=== PATIENT | male | born 1965 | race Caucasian/White ===

== ENCOUNTER 2017-10-17 08:26 | Emergency (ER) | payer MEDICAID ==
[~2017-10-17] VITALS: Ht 177.8 cm; Wt 75.0 kg
[~2017-10-17 08:26] MED LIST: ALBU6.7H INH; BENZ1TAB7 PO; BUDE10.2 INH; CHOL50004 PO; FLUO20CA22 PO; FOLI1TAB16 PO; GABA-532 PO; HALO10TA13 PO; HALO5TAB PO; LORA-269 PO; MULT1TAB74 PO; PANT-47 PO; PRAZ1CAP2 PO; PRED10TA23 PO; QUET-1 PO; SERT50TA10 PO; VITA-104 PO
[2017-10-17] MEDS ORDERED: FLO0.4C PO (08:55)
[2017-10-17] MEDS ORDERED: phenazopyridine 100mg tablet PO ONE (08:55)
[2017-10-17] MEDS ORDERED: CefTRIAXone 250MG IM Kit w/LIDOcaine IM ONE (08:55)
[2017-10-17] MEDS ORDERED: BACDS PO (08:55)
[2017-10-17] MEDS ORDERED: azithromycin 250mg tablet PO ONE (08:55)
[2017-10-17] MEDS ORDERED: ondansetron 4mg rapidly disintigrating tab PO ONE (08:55)
[2017-10-17 09:12] VITALS: BP 126/83
[2017-10-17 09:18] LABS: CLARITY,URINE CLEAR (Clear); COLOR,URINE YELLOW (Yellow); GLUCOSE, URINE NEGATIVE (Neg); KETONES,URINE TRACE mg/dl (Neg); LEUKOCYTE ESTERASE ,URINE NEGATIVE (Neg); NITRITES, URINE NEGATIVE (Neg); OCCULT BLOOD,URINE NEGATIVE (Neg); PROTEIN,URINE NEGATIVE (Neg); UROBILINOGEN,URINE 0.2 E.U/dL (0.2-1.0)
[2017-10-17 09:29] LABS: UA COLLECTION TYPE CLN CATCH MIDSTREAM
[2017-10-17] MEDS ORDERED: LIDOcaine 2% 10ml TOPICAL JELLY (Urojet) MM ONE (09:35)
== END 2017-10-17 10:26 | disposition home or self-care (01) ==
LOC: ER 08:26
DX: R33.9 Retention of urine, unspecified (principal); R30.0 Dysuria; R39.15 Urgency of urination; E78.00 Pure hypercholesterolemia, unspecified; I10 Essential (primary) hypertension; J44.9 Chronic obstructive pulmonary disease, unspecified; G89.29 Other chronic pain; F15.90 Other stimulant use, unspecified, uncomplicated; F12.90 Cannabis use, unspecified, uncomplicated; Z59.0 Homelessness; Z79.899 Other long term (current) drug therapy
CPT/HCPCS: 51702; 81003; 96372; 99285; A4315; J0696

== ENCOUNTER 2017-10-24 05:49 | Emergency (ER) | payer MEDICAID ==
[~2017-10-24] VITALS: Ht 177.8 cm; Wt 75.0 kg
[~2017-10-24 05:49] MED LIST changes: +BACDS PO; +FLO0.4C PO
[2017-10-24 05:58] VITALS: BP 127/84
== END 2017-10-24 06:55 | disposition home or self-care (01) ==
LOC: ER 05:50
DX: Z46.6 Encounter for fitting and adjustment of urinary device (principal); I10 Essential (primary) hypertension; E78.00 Pure hypercholesterolemia, unspecified; J44.9 Chronic obstructive pulmonary disease, unspecified; G89.29 Other chronic pain; F12.90 Cannabis use, unspecified, uncomplicated; F15.90 Other stimulant use, unspecified, uncomplicated; Z90.89 Acquired absence of other organs; Z79.899 Other long term (current) drug therapy; Z59.0 Homelessness
CPT/HCPCS: 99281

== ENCOUNTER 2017-12-29 11:43 | Emergency (ER) | payer MEDICAID ==
[~2017-12-29] VITALS: Ht 177.8 cm; Wt 68.0 kg
[~2017-12-29 11:43] MED LIST changes: -BACDS PO; -FLO0.4C PO
[2017-12-29 12:54] LABS: CLARITY,URINE SLIGHTLY CLOUDY (Clear); GLUCOSE, URINE NEGATIVE (Neg); KETONES,URINE 15 mg/dl (Neg); LEUKOCYTE ESTERASE ,URINE NEGATIVE (Neg); NITRITES, URINE POSITIVE (Neg); OCCULT BLOOD,URINE MODERATE (Neg); PROTEIN,URINE 30 mg/dl (Neg)
[2017-12-29 12:55] LABS: COLOR,URINE DARK YELLOW (Yellow); UA COLLECTION TYPE FOLEY CATH
[2017-12-29 13:01] LABS: BACTERIA,URINE 4+ /HPF (Neg); WBC,URINE 20-30 /HPF (0-4)
[2017-12-29 13:02] LABS: SPERM MODERATE /HPF (NEGATIVE); SQUAMOUS EPITHELIAL CELL,UR FEW /LPF (FEW)
[2017-12-29] MEDS ORDERED: ciprofloxacin 250mg tablet PO ONE (13:15)
[2017-12-29] MEDS ORDERED: CIPR-230 PO (13:18)
[2017-12-29] MEDS ORDERED: FLO0.4C PO (13:35)
[2017-12-29 14:02] VITALS: BP 139/102
== END 2017-12-29 14:03 | disposition home or self-care (01) ==
LOC: ER 11:44
DX: N39.0 Urinary tract infection, site not specified (principal); E78.00 Pure hypercholesterolemia, unspecified; I10 Essential (primary) hypertension; J44.9 Chronic obstructive pulmonary disease, unspecified; G89.29 Other chronic pain; F17.200 Nicotine dependence, unspecified, uncomplicated; F12.90 Cannabis use, unspecified, uncomplicated; F15.90 Other stimulant use, unspecified, uncomplicated; Z90.89 Acquired absence of other organs; Z59.0 Homelessness; Z79.899 Other long term (current) drug therapy
CPT/HCPCS: 51702; 81001; 87077; 87088; 87186; 99284; A4315

== ENCOUNTER 2018-01-05 07:52 | Emergency (ER) | payer MEDICAID ==
[~2018-01-05] VITALS: Ht 177.8 cm; Wt 71.8 kg
[~2018-01-05 07:52] MED LIST changes: +CIPR-230 PO; +FLO0.4C PO
[2018-01-05 09:27] VITALS: BP 119/79
== END 2018-01-05 09:28 | disposition home or self-care (01) ==
LOC: ER 07:53
DX: Z46.6 Encounter for fitting and adjustment of urinary device (principal); R33.9 Retention of urine, unspecified; E78.00 Pure hypercholesterolemia, unspecified; I10 Essential (primary) hypertension; J44.9 Chronic obstructive pulmonary disease, unspecified; G89.29 Other chronic pain; F17.200 Nicotine dependence, unspecified, uncomplicated; F12.90 Cannabis use, unspecified, uncomplicated; F15.90 Other stimulant use, unspecified, uncomplicated; Z79.899 Other long term (current) drug therapy; Z59.0 Homelessness
CPT/HCPCS: 99281

== ENCOUNTER 2018-04-10 08:51 | Emergency (ER) | payer MEDICAID ==
[~2018-04-10] VITALS: Ht 177.8 cm; Wt 72.7 kg
[~2018-04-10 08:51] MED LIST changes: -CIPR-230 PO; -FLO0.4C PO
[2018-04-10] MEDS ORDERED: normal saline 1000ML IV soln IVB ONE (09:20)
[2018-04-10] MEDS ORDERED: acetaminophen 325mg tablet PO ONE (09:25)
[2018-04-10 09:46] LABS: BASOPHILS % (AUTO) 0.1 % (0-1); EOSINOPHILS % (AUTO) 0 % (0-6); HEMATOCRIT 42.3 % (42.0-52.0); HEMOGLOBIN 14.2 g/dl (14.0-17.9); LYMPHOCYTES # (AUTO) 0.4 X10'3 (1.1-4.8); LYMPHOCYTES % (AUTO) 5.3 % (21-51); MEAN CORPUSCULAR HEMOGLOBIN 30.6 PG (27.0-31.0); MEAN CORPUSCULAR HGB CONC 33.6 % (33.0-36.5); MEAN PLATELET VOLUME 8.6 FL (7.4-10.4); MONOCYTES # (AUTO) 0.5 X10'3 (0-0.9); MONOCYTES % (AUTO) 6.4 % (2-12); NEUTROPHILS # (AUTO) 7.4 X10'3 (1.8-7.7); NEUTROPHILS % (AUTO) 88.2 % (42-75); PLATELET COUNT 186 X10'3 (140-440); RED BLOOD COUNT 4.65 X10'6 (4.70-6.10); RED CELL DISTRIBUTION WIDTH 14.2 % (11.5-14.5); WHITE BLOOD COUNT 8.4 X10'3 (4.5-11.0)
[2018-04-10 10:04] LABS: ALANINE AMINOTRANSFERASE 20 U/L (12-78); ALBUMIN 3.6 G/DL (3.4-5.0); ALBUMIN/GLOBULIN RATIO 0.9 (1.1-1.5); ALKALINE PHOSPHATASE 60 IU/L (46-116); ANION GAP 12 (8-16); ASPARTATE AMINO TRANSFERASE 23 U/L (10-37); BILIRUBIN,TOTAL 0.4 MG/DL (0.1-1.0); BLOOD UREA NITROGEN 16 MG/DL (7-18); BUN/CREATININE RATIO 12.9 (5.4-32.0); CALCIUM 8.6 MG/DL (8.5-10.1); CHLORIDE 96 MMOL/L (99-107); CREATININE 1.24 MG/DL (0.60-1.10); GLUCOSE 100 MG/DL (70-104); POTASSIUM 3.3 MMOL/L (3.5-5.1); SODIUM 132 MMOL/L (135-145); TOTAL CARBON DIOXIDE 23.8 MMOL/L (24-32); TOTAL PROTEIN 7.5 G/DL (6.4-8.2); eGFR 61 ML/MIN
[2018-04-10 10:09] LABS: PARTIAL THROMBOPLASTIN TIME 35 SECONDS (22-32); PROTHROMBIN TIME 9.8 SECONDS (9.0-12.0)
[2018-04-10] MEDS ORDERED: AZIT-72 PO (10:42)
[2018-04-10 10:43] LABS: CLARITY,URINE CLEAR (Clear); COLOR,URINE AMBER (Yellow); GLUCOSE, URINE NEGATIVE (Neg); KETONES,URINE TRACE mg/dl (Neg); LEUKOCYTE ESTERASE ,URINE NEGATIVE (Neg); NITRITES, URINE NEGATIVE (Neg); OCCULT BLOOD,URINE NEGATIVE (Neg); PROTEIN,URINE 30 mg/dl (Neg); UA COLLECTION TYPE NON-SPECIFIED
[2018-04-10 10:46] LABS: BANDS% (MANUAL) 7 % (0-10); LYMPHOCYTES % (MANUAL) 7 % (21-51); MONOCYTES % (MANUAL) 3 % (2-12); NEUTROPHILS % (MANUAL) 83 % (42-75); PLATELET ESTIMATE NORMAL; TOTAL CELLS COUNTED 100
[2018-04-10 10:51] LABS: RBC,URINE NONE SEEN /HPF (0-2)
[2018-04-10 10:52] LABS: BACTERIA,URINE FEW /HPF (Neg); MUCUS STRANDS MODERATE /LPF (Neg); SQUAMOUS EPITHELIAL CELL,UR NONE SEEN /LPF (FEW)
[2018-04-10] MEDS ORDERED: BENZ-16 PO (10:58)
[2018-04-10 11:02] VITALS: BP 116/61
== END 2018-04-10 11:04 | disposition home or self-care (01) ==
LOC: ER 08:52
DX: J11.1 Influenza due to unidentified influenza virus with other respiratory manifestations (principal); R05 Cough; R51 Headache; R11.2 Nausea with vomiting, unspecified; E78.00 Pure hypercholesterolemia, unspecified; I10 Essential (primary) hypertension; G89.29 Other chronic pain; F41.9 Anxiety disorder, unspecified; F17.200 Nicotine dependence, unspecified, uncomplicated; J44.9 Chronic obstructive pulmonary disease, unspecified; F12.10 Cannabis abuse, uncomplicated; F15.10 Other stimulant abuse, uncomplicated; Z59.0 Homelessness; Z88.1 Allergy status to other antibiotic agents; Z88.8 Allergy status to other drugs, medicaments and biological substances; Z90.89 Acquired absence of other organs
CPT/HCPCS: 36415; 71045; 80053; 81001; 83605; 84145; 85025; 85610; 85730; 87040; 87088; 96360; 99284; J7030

== ENCOUNTER 2019-02-16 13:47 | Emergency (ER) | payer MEDICAID ==
[~2019-02-16] VITALS: Ht 177.8 cm; Wt 68.2 kg
[~2019-02-16 13:47] MED LIST changes: -ALBU6.7H INH; +ALBU6.7H9 INH
--- NOTE | 2019-02-16 14:19 | NUR ---
Provider, Dr. Wallace is with the patient at this time.
[2019-02-16] MEDS ORDERED: proparacaine 0.5% ophthalmic drops 15ml EACHEYE ONE (14:25)
[2019-02-16 15:00] VITALS: BP 118/62
== END 2019-02-16 15:29 | disposition home or self-care (01) ==
LOC: ER 13:48
DX: H16.002 Unspecified corneal ulcer, left eye (principal); E78.00 Pure hypercholesterolemia, unspecified; I10 Essential (primary) hypertension; J44.9 Chronic obstructive pulmonary disease, unspecified; G89.29 Other chronic pain; F12.90 Cannabis use, unspecified, uncomplicated; F15.90 Other stimulant use, unspecified, uncomplicated; Z59.0 Homelessness; Z90.89 Acquired absence of other organs; Z79.899 Other long term (current) drug therapy
CPT/HCPCS: 99283

== ENCOUNTER 2019-04-20 10:34 | Emergency (ER) | payer MEDICAID ==
[~2019-04-20] VITALS: Ht 177.8 cm; Wt 71.3 kg
[2019-04-20 10:53] VITALS: BP 129/77
[2019-04-20] MEDS ORDERED: HYDROcodone/acetaminophen 10/325mg tab PO ONE (11:00)
== END 2019-04-20 12:10 | disposition home or self-care (01) ==
LOC: ER 10:34
DX: S43.101A Unspecified dislocation of right acromioclavicular joint, initial encounter (principal); E78.00 Pure hypercholesterolemia, unspecified; I10 Essential (primary) hypertension; J44.9 Chronic obstructive pulmonary disease, unspecified; G89.29 Other chronic pain; F41.9 Anxiety disorder, unspecified; F12.90 Cannabis use, unspecified, uncomplicated; F15.90 Other stimulant use, unspecified, uncomplicated; Z90.89 Acquired absence of other organs; Z59.0 Homelessness; Z79.899 Other long term (current) drug therapy; W01.0XXA Fall on same level from slipping, tripping and stumbling without subsequent striking against object, initial encounter; Y93.89 Activity, other specified; Y92.89 Other specified places as the place of occurrence of the external cause; Y99.8 Other external cause status
CPT/HCPCS: 73030; 99284

== ENCOUNTER 2020-06-05 10:39 | Inpatient (IN) | payer MEDICAID ==
[~2020-06-05] VITALS: Ht 177.8 cm; Wt 76.6 kg
[~2020-06-05 10:39] MED LIST changes: +FLUO-167 PO; -FLUO20CA22 PO; +MULT-620 PO; -MULT1TAB74 PO
[2020-06-05 12:01] LABS: BASOPHILS % (AUTO) 0.8 % (0-1); EOSINOPHILS # (AUTO) 0.1 X10'3 (0-0.9); EOSINOPHILS % (AUTO) 2.4 % (0-6); HEMATOCRIT 26.7 % (42.0-52.0); LYMPHOCYTES # (AUTO) 1.4 X10'3 (1.1-4.8); LYMPHOCYTES % (AUTO) 26.9 % (21-51); MEAN CORPUSCULAR HEMOGLOBIN 28.9 PG (27.0-31.0); MEAN CORPUSCULAR HGB CONC 33.7 g/dL (33.0-36.5); MEAN CORPUSCULAR VOLUME 85.7 FL (78-98); MEAN PLATELET VOLUME 6.7 FL (7.4-10.4); MONOCYTES # (AUTO) 0.4 X10'3 (0-0.9); MONOCYTES % (AUTO) 7.3 % (2-12); NEUTROPHILS # (AUTO) 3.3 X10'3 (1.8-7.7); NEUTROPHILS % (AUTO) 62.6 % (42-75); PLATELET COUNT 234 X10'3 (140-440); RED BLOOD COUNT 3.11 X10'6 (4.70-6.10); WHITE BLOOD COUNT 5.2 X10'3 (4.5-11.0)
[2020-06-05 12:03] LABS: CLARITY,URINE CLEAR (Clear); COLOR,URINE STRAW (Yellow); GLUCOSE, URINE NEGATIVE (Neg); KETONES,URINE NEGATIVE (Neg); LEUKOCYTE ESTERASE ,URINE NEGATIVE (Neg); NITRITES, URINE NEGATIVE (Neg); OCCULT BLOOD,URINE TRACE-INTACT (Neg); PROTEIN,URINE NEGATIVE (Neg); UROBILINOGEN,URINE 0.2 E.U/dL (0.2-1.0)
[2020-06-05 12:10] LABS: UA COLLECTION TYPE CLN CATCH MIDSTREAM
[2020-06-05 12:15] LABS: ALANINE AMINOTRANSFERASE 39 U/L (12-78); ALBUMIN 3.7 G/DL (3.4-5.0); ALBUMIN/GLOBULIN RATIO 0.9 (1.1-1.5); ALKALINE PHOSPHATASE 66 IU/L (46-116); ANION GAP 13 (8-16); ASPARTATE AMINO TRANSFERASE 25 U/L (10-37); BILIRUBIN,TOTAL 0.3 MG/DL (0.1-1.0); BLOOD UREA NITROGEN 92 MG/DL (7-18); BUN/CREATININE RATIO 15.3 (5.4-32.0); CALCIUM 8.5 MG/DL (8.5-10.1); CHLORIDE 108 MMOL/L (99-107); CREATININE 6.02 MG/DL (0.60-1.10); GLUCOSE 93 MG/DL (70-104); POTASSIUM 4.8 MMOL/L (3.5-5.1); SODIUM 140 MMOL/L (135-145); TOTAL CARBON DIOXIDE 18.9 MMOL/L (24-32); TOTAL PROTEIN 7.7 G/DL (6.4-8.2); eGFR 10 ML/MIN
[2020-06-05 12:23] LABS: BACTERIA,URINE NONE SEEN /HPF (Neg); MUCUS STRANDS NONE SEEN /LPF (Neg); RBC,URINE 0-2 /HPF (0-2); RENAL CELLS, URINE FEW /HPF; SQUAMOUS EPITHELIAL CELL,UR NONE SEEN /LPF (FEW); WBC,URINE 0-4 /HPF (0-4)
[2020-06-05] MEDS ORDERED: normal saline 1000ml 1,000 ML IV ONE ×2 (12:55)
[2020-06-05] MEDS ORDERED: LIDOcaine 2% 10ml TOPICAL JELLY (Urojet) MM ONE (13:00)
[2020-06-05] MEDS ORDERED: HYDROcodone/acetaminophen 5mg/325mg tablet PO PRN (13:15)
[2020-06-05] MEDS ORDERED: morphine 2 MG/ML inj. syringe IV PRN ×2 (13:15)
[2020-06-05] MEDS ORDERED: mag hydrox/Alum hydrox/simeth 30ml oral suspension PO PRN (13:15)
[2020-06-05] MEDS ORDERED: acetaminophen 325mg tablet PO PRN ×2 (13:15)
[2020-06-05] MEDS ORDERED: magnesium hydroxide 30ml (MOM) UD suspension PO PRN (13:15)
[2020-06-05] MEDS ORDERED: ondansetron/PF 4mg/2ml inj IV PRN (13:15)
[2020-06-05] MEDS ORDERED: IBUP-1985 PO (13:18)
[2020-06-05] MEDS ORDERED: OMEP-50 PO (13:18)
[2020-06-05] MEDS ORDERED: GABA-534 PO (13:18)
[2020-06-05] MEDS ORDERED: FLO0.4C PO (13:18)
--- NOTE | 2020-06-05 13:19 | NUR ---
nitro gtt increased to 10 mg/hr per PA instructions, pt tolerating gtt and BIPAP well
[2020-06-05 14:00] LABS: MAGNESIUM 2.1 MG/DL (1.5-2.4); PHOSPHORUS 6.8 MG/DL (2.3-4.5)
[2020-06-05] MEDS: normal saline 1000ml 1,000 ML IV SCH ×2 (14:46→23:15)
[2020-06-05] MEDS: HYDROcodone/acetaminophen 10/325mg tab PO PRN (16:31)
--- NOTE | 2020-06-05 16:54 | NUR ---
Patient in room PCU 3018A. I have received report from YULY ANDERSON IN ER and had the opportunity to ask questions and assume patient care.
[2020-06-05 18:00] VITALS: BP 166/95
--- NOTE | 2020-06-05 18:38 | NUR ---
Problems reprioritized. Patient report given, questions answered & plan of care reviewed with YULY GUTIERREZ.
[2020-06-05] MEDS: gabapentin 400mg capsule PO SCH (20:07)
[2020-06-05] MEDS: heparin, porcine 5000 units/ml vial SQ SCH (20:07)
[2020-06-05 22:00] VITALS: BP 156/84
[2020-06-06] MEDS: normal saline 1000ml 1,000 ML IV SCH ×2 (00:41→19:15)
[2020-06-06 02:00] VITALS: BP 141/87
[2020-06-06 06:00] VITALS: BP 134/81
[2020-06-06] MEDS: HYDROcodone/acetaminophen 10/325mg tab PO PRN ×2 (06:17→15:43)
--- NOTE | 2020-06-06 06:33 | NUR ---
Patient in room PCU 3018. I have received report from Josi EMERY and had the opportunity to ask questions and assume patient care.
[2020-06-06 07:14] LABS: BASOPHILS # (AUTO) 0.1 X10'3 (0-0.2); BASOPHILS % (AUTO) 0.8 % (0-1); EOSINOPHILS # (AUTO) 0.2 X10'3 (0-0.9); EOSINOPHILS % (AUTO) 3.2 % (0-6); HEMATOCRIT 31.7 % (42.0-52.0); HEMOGLOBIN 10.6 g/dl (14.0-17.9); LYMPHOCYTES # (AUTO) 1.7 X10'3 (1.1-4.8); LYMPHOCYTES % (AUTO) 28.7 % (21-51); MEAN CORPUSCULAR HEMOGLOBIN 28.8 PG (27.0-31.0); MEAN CORPUSCULAR HGB CONC 33.5 g/dL (33.0-36.5); MEAN CORPUSCULAR VOLUME 85.9 FL (78-98); MEAN PLATELET VOLUME 7.2 FL (7.4-10.4); MONOCYTES # (AUTO) 0.4 X10'3 (0-0.9); MONOCYTES % (AUTO) 6.7 % (2-12); NEUTROPHILS # (AUTO) 3.7 X10'3 (1.8-7.7); NEUTROPHILS % (AUTO) 60.6 % (42-75); PLATELET COUNT 287 X10'3 (140-440); RED CELL DISTRIBUTION WIDTH 13.9 % (11.5-14.5); WHITE BLOOD COUNT 6.1 X10'3 (4.5-11.0)
[2020-06-06 07:20] LABS: ALBUMIN 3.9 G/DL (3.4-5.0); ANION GAP 12 (8-16); BLOOD UREA NITROGEN 78 MG/DL (7-18); CALCIUM 8.5 MG/DL (8.5-10.1); CHLORIDE 107 MMOL/L (99-107); CREATININE 4.89 MG/DL (0.60-1.10); GLUCOSE 90 MG/DL (70-104); SODIUM 141 MMOL/L (135-145); TOTAL CARBON DIOXIDE 21.9 MMOL/L (24-32); eGFR 12 ML/MIN
[2020-06-06] MEDS: pantoprazole 40mg Tablet.DR PO SCH (08:19)
[2020-06-06] MEDS: gabapentin 400mg capsule PO SCH ×2 (08:19→13:14)
[2020-06-06] MEDS: tamsulosin 0.4mg capsule PO SCH (08:19)
[2020-06-06] MEDS: heparin, porcine 5000 units/ml vial SQ SCH ×2 (08:20→20:28)
[2020-06-06 11:00] VITALS: BP 141/88
[2020-06-06 15:00] VITALS: BP 134/96
[2020-06-06 18:00] VITALS: BP 124/87
--- NOTE | 2020-06-06 18:07 | NUR ---
Problems reprioritized. Patient report given, questions answered & plan of care reviewed with Josi EMERY.
[2020-06-06 22:00] VITALS: BP 124/76
[2020-06-07] MEDS: HYDROcodone/acetaminophen 10/325mg tab PO PRN ×3 (01:55→15:40)
[2020-06-07] MEDS: normal saline 1000ml 1,000 ML IV SCH ×2 (03:48→15:15)
[2020-06-07 06:00] VITALS: BP 113/80
[2020-06-07 06:18] LABS: BASOPHILS % (AUTO) 0.6 % (0-1); EOSINOPHILS # (AUTO) 0.2 X10'3 (0-0.9); EOSINOPHILS % (AUTO) 3.7 % (0-6); HEMOGLOBIN 9.8 g/dl (14.0-17.9); LYMPHOCYTES # (AUTO) 2.2 X10'3 (1.1-4.8); LYMPHOCYTES % (AUTO) 34.2 % (21-51); MEAN CORPUSCULAR HEMOGLOBIN 28.9 PG (27.0-31.0); MEAN CORPUSCULAR HGB CONC 33.9 g/dL (33.0-36.5); MEAN CORPUSCULAR VOLUME 85.3 FL (78-98); MEAN PLATELET VOLUME 7.3 FL (7.4-10.4); MONOCYTES # (AUTO) 0.5 X10'3 (0-0.9); MONOCYTES % (AUTO) 7.8 % (2-12); NEUTROPHILS # (AUTO) 3.5 X10'3 (1.8-7.7); NEUTROPHILS % (AUTO) 53.7 % (42-75); PLATELET COUNT 251 X10'3 (140-440); RED CELL DISTRIBUTION WIDTH 13.6 % (11.5-14.5); WHITE BLOOD COUNT 6.4 X10'3 (4.5-11.0)
[2020-06-07 06:42] LABS: ALBUMIN 3.3 G/DL (3.4-5.0); ANION GAP 10 (8-16); BLOOD UREA NITROGEN 63 MG/DL (7-18); BUN/CREATININE RATIO 16.1 (5.4-32.0); CALCIUM 8.3 MG/DL (8.5-10.1); CHLORIDE 105 MMOL/L (99-107); CREATININE 3.91 MG/DL (0.60-1.10); GLUCOSE 105 MG/DL (70-104); SODIUM 138 MMOL/L (135-145); TOTAL CARBON DIOXIDE 22.8 MMOL/L (24-32); eGFR 16 ML/MIN
--- NOTE | 2020-06-07 06:46 | NUR ---
Patient in room PCU 3018. I have received report from alberto ORTEGA and had the opportunity to ask questions and assume patient care.
[2020-06-07] MEDS: gabapentin 300mg capsule PO SCH (08:06)
[2020-06-07] MEDS: tamsulosin 0.4mg capsule PO SCH (08:06)
[2020-06-07] MEDS: pantoprazole 40mg Tablet.DR PO SCH (08:06)
[2020-06-07] MEDS: heparin, porcine 5000 units/ml vial SQ SCH ×2 (08:09→19:59)
[2020-06-07 11:00] VITALS: BP 162/82
[2020-06-07 15:00] VITALS: BP 145/78
[2020-06-07 18:00] VITALS: BP 142/89
--- NOTE | 2020-06-07 18:19 | NUR ---
Patient in room PCU 3018. I have received report from YULY Holt and had the opportunity to ask questions and assume patient care.
--- NOTE | 2020-06-07 18:30 | NUR ---
Problems reprioritized. Patient report given, questions answered & plan of care reviewed with YULY Hamilton.
[2020-06-07 22:00] VITALS: BP 122/76
[2020-06-08] MEDS: normal saline 1000ml 1,000 ML IV SCH ×3 (00:39→20:31)
[2020-06-08 02:00] VITALS: BP 107/66
[2020-06-08 06:00] VITALS: BP 112/68
--- NOTE | 2020-06-08 06:45 | NUR ---
Patient in room PCU 3018. I have received report from ANJANA EMERY and had the opportunity to ask questions and assume patient care. PT SLEEPING. NO DISTRESS. CALL LIGHT IN REACH Addendum: 06/08/20 at 1158 by Luz Clinton RN Amended: Links added.
--- NOTE | 2020-06-08 06:57 | NUR ---
Problems reprioritized. Patient report given, questions answered & plan of care reviewed with YULY Escobar.
[2020-06-08 07:06] LABS: BASOPHILS % (AUTO) 0.7 % (0-1); EOSINOPHILS # (AUTO) 0.3 X10'3 (0-0.9); EOSINOPHILS % (AUTO) 5.4 % (0-6); HEMATOCRIT 27.5 % (42.0-52.0); HEMOGLOBIN 9.4 g/dl (14.0-17.9); LYMPHOCYTES # (AUTO) 2.1 X10'3 (1.1-4.8); LYMPHOCYTES % (AUTO) 40.9 % (21-51); MEAN CORPUSCULAR HEMOGLOBIN 29.1 PG (27.0-31.0); MEAN CORPUSCULAR HGB CONC 34.2 g/dL (33.0-36.5); MEAN CORPUSCULAR VOLUME 85.1 FL (78-98); MEAN PLATELET VOLUME 7.1 FL (7.4-10.4); MONOCYTES # (AUTO) 0.4 X10'3 (0-0.9); MONOCYTES % (AUTO) 7.9 % (2-12); NEUTROPHILS # (AUTO) 2.4 X10'3 (1.8-7.7); NEUTROPHILS % (AUTO) 45.1 % (42-75); PLATELET COUNT 250 X10'3 (140-440); RED BLOOD COUNT 3.24 X10'6 (4.70-6.10); RED CELL DISTRIBUTION WIDTH 13.5 % (11.5-14.5); WHITE BLOOD COUNT 5.2 X10'3 (4.5-11.0)
[2020-06-08 07:20] LABS: ALBUMIN 3.2 G/DL (3.4-5.0); ANION GAP 8 (8-16); BLOOD UREA NITROGEN 62 MG/DL (7-18); BUN/CREATININE RATIO 21.5 (5.4-32.0); CALCIUM 7.9 MG/DL (8.5-10.1); CHLORIDE 106 MMOL/L (99-107); CREATININE 2.88 MG/DL (0.60-1.10); GLUCOSE 103 MG/DL (70-104); POTASSIUM 4.6 MMOL/L (3.5-5.1); SODIUM 139 MMOL/L (135-145); TOTAL CARBON DIOXIDE 25.4 MMOL/L (24-32); eGFR 23 ML/MIN
[2020-06-08] MEDS: pantoprazole 40mg Tablet.DR PO SCH (08:24)
[2020-06-08] MEDS: gabapentin 300mg capsule PO SCH (08:24)
[2020-06-08] MEDS: tamsulosin 0.4mg capsule PO SCH (08:24)
[2020-06-08] MEDS: heparin, porcine 5000 units/ml vial SQ SCH ×2 (08:25→20:33)
[2020-06-08] MEDS: HYDROcodone/acetaminophen 10/325mg tab PO PRN ×2 (08:31→14:05)
[2020-06-08] MEDS: diphenhydrAMINE 25mg capsule PO PRN ×2 (10:46→20:42)
[2020-06-08 11:00] VITALS: BP 115/69
--- NOTE | 2020-06-08 12:25 | NUR ---
Problems reprioritized. Patient report given, questions answered & plan of care reviewed with LONNY EMERY. Addendum: 06/08/20 at 1226 by Luz Clinton RN Amended: Links added.
--- NOTE | 2020-06-08 12:30 | NUR ---
Patient in room PCU 3018. I have received report from Luz Clinton RN and had the opportunity to ask questions and assume patient care.
[2020-06-08 15:00] VITALS: BP 111/70
[2020-06-08 18:00] VITALS: BP 112/69
--- NOTE | 2020-06-08 18:11 | NUR ---
Patient in room PCU 3018. I have received report from YULY Wynne and had the opportunity to ask questions and assume patient care.
--- NOTE | 2020-06-08 18:20 | NUR ---
Problems reprioritized. Patient report given, questions answered & plan of care reviewed with YULY Hamilton.
[2020-06-08 22:00] VITALS: BP 128/73
[2020-06-09 02:00] VITALS: BP 106/80
[2020-06-09] MEDS: HYDROcodone/acetaminophen 10/325mg tab PO PRN (03:08)
[2020-06-09] MEDS: diphenhydrAMINE 25mg capsule PO PRN (03:11)
[2020-06-09] MEDS: normal saline 1000ml 1,000 ML IV SCH (05:45)
[2020-06-09 06:00] VITALS: BP 127/86
--- NOTE | 2020-06-09 06:09 | NUR ---
Problems reprioritized. Patient report given, questions answered & plan of care reviewed with YULY Wynne.
--- NOTE | 2020-06-09 06:26 | NUR ---
Patient in room PCU 3018. I have received report from YULY Hamilton and had the opportunity to ask questions and assume patient care.
[2020-06-09 06:43] LABS: BASOPHILS % (AUTO) 0.5 % (0-1); EOSINOPHILS # (AUTO) 0.3 X10'3 (0-0.9); EOSINOPHILS % (AUTO) 5.2 % (0-6); HEMATOCRIT 29.4 % (42.0-52.0); HEMOGLOBIN 9.8 g/dl (14.0-17.9); LYMPHOCYTES # (AUTO) 2.3 X10'3 (1.1-4.8); LYMPHOCYTES % (AUTO) 38.9 % (21-51); MEAN CORPUSCULAR HEMOGLOBIN 28.7 PG (27.0-31.0); MEAN CORPUSCULAR HGB CONC 33.4 g/dL (33.0-36.5); MEAN CORPUSCULAR VOLUME 85.9 FL (78-98); MEAN PLATELET VOLUME 7.4 FL (7.4-10.4); MONOCYTES # (AUTO) 0.4 X10'3 (0-0.9); MONOCYTES % (AUTO) 6.1 % (2-12); NEUTROPHILS # (AUTO) 2.9 X10'3 (1.8-7.7); NEUTROPHILS % (AUTO) 49.3 % (42-75); PLATELET COUNT 253 X10'3 (140-440); RED BLOOD COUNT 3.42 X10'6 (4.70-6.10); RED CELL DISTRIBUTION WIDTH 13.9 % (11.5-14.5); WHITE BLOOD COUNT 5.9 X10'3 (4.5-11.0)
[2020-06-09 06:58] LABS: ALBUMIN 3.2 G/DL (3.4-5.0); ANION GAP 8 (8-16); BLOOD UREA NITROGEN 52 MG/DL (7-18); BUN/CREATININE RATIO 19.3 (5.4-32.0); CALCIUM 7.9 MG/DL (8.5-10.1); CHLORIDE 105 MMOL/L (99-107); CREATININE 2.69 MG/DL (0.60-1.10); GLUCOSE 133 MG/DL (70-104); POTASSIUM 4.5 MMOL/L (3.5-5.1); SODIUM 138 MMOL/L (135-145); TOTAL CARBON DIOXIDE 25.2 MMOL/L (24-32); eGFR 25 ML/MIN
[2020-06-09] MEDS: pantoprazole 40mg Tablet.DR PO SCH (08:06)
[2020-06-09] MEDS: gabapentin 300mg capsule PO SCH (08:06)
[2020-06-09] MEDS: tamsulosin 0.4mg capsule PO SCH (08:06)
[2020-06-09] MEDS: heparin, porcine 5000 units/ml vial SQ SCH (08:07)
--- NOTE | 2020-06-09 10:36 | NUR ---
Patient stable for discharge per md orders. Strict return precautions given to patient including follow up with Dr. Tiwari in two weeks. Urinary catheter leg bag given to patient. IV taken out with cannula intact. Ride to the [facility] was arranged but patient refused, and stated " I'd rather walk." Patient belongings gathered. cardiac monitor taken off, wrist bands cut off. Patient ambulated to lobby and outside into parking lot, where he was seen leaving premises.
== END 2020-06-09 10:39 | disposition home or self-care (01) | DRG 469 ==
LOC: ER 10:39 → ED HOLD 13:15 → PCU 3S 17:12
PROVIDERS: ADMIT Internal Medicine; ATTEND Internal Medicine
DX: N17.9 Acute kidney failure, unspecified (principal); E78.00 Pure hypercholesterolemia, unspecified; F17.210 Nicotine dependence, cigarettes, uncomplicated; I10 Essential (primary) hypertension; J44.9 Chronic obstructive pulmonary disease, unspecified; M48.02 Spinal stenosis, cervical region; N40.0 Benign prostatic hyperplasia without lower urinary tract symptoms; Z59.0 Homelessness; Z79.899 Other long term (current) drug therapy; Z87.440 Personal history of urinary (tract) infections; Z20.822 Contact with and (suspected) exposure to COVID-19; F41.9 Anxiety disorder, unspecified; G89.29 Other chronic pain; M54.9 Dorsalgia, unspecified; D64.9 Anemia, unspecified; G62.9 Polyneuropathy, unspecified; K21.9 Gastro-esophageal reflux disease without esophagitis
CPT/HCPCS: 36415; 72141; 80048; 80053; 81001; 83735; 83880; 84100; 85025; 85651; 87081; 87635; 99285; G0378; J1644; J7030; Q0163

== ENCOUNTER 2020-10-29 17:21 | Emergency (ER) | payer MEDICAID ==
[~2020-10-29] VITALS: Ht 177.8 cm; Wt 67.0 kg
[~2020-10-29 17:21] MED LIST changes: -ALBU6.7H9 INH; -BENZ1TAB7 PO; -BUDE10.2 INH; -CHOL50004 PO; +FLO0.4C PO; -FLUO-167 PO; -FOLI1TAB16 PO; -GABA-532 PO; +GABA-534 PO; -HALO10TA13 PO; -HALO5TAB PO; +IBUP-1985 PO; -LORA-269 PO; -MULT-620 PO; +OMEP-50 PO; -PANT-47 PO; -PRAZ1CAP2 PO; -PRED10TA23 PO; -QUET-1 PO; -SERT50TA10 PO; -VITA-104 PO
[2020-10-29] MEDS ORDERED: LIDOcaine 1% W/epiNEPHrine 1:200,000 10ml vial IJ ONE (18:45)
[2020-10-29] MEDS ORDERED: cephalexin 500mg capsule PO ONE (19:15)
[2020-10-29] MEDS ORDERED: sulfamethoxazole/trimethoprim DS (800/160mg) tablet PO ONE (19:15)
[2020-10-29] MEDS ORDERED: SULF1TAB49 PO (19:20)
[2020-10-29] MEDS ORDERED: CEPH-585 PO (19:20)
--- NOTE | 2020-10-29 19:23 | NUR ---
ABOUT A 3 CM BY 3 CM RAISED LUMP ON MEDIAL LEFT WRIST ASPIRATED BY DR KEYES: FLUID CLEAR: PATIETN AWARE THAT THE LUMP MAY BE A GANGLION CYST
--- NOTE | 2020-10-29 19:24 | NUR ---
DRESSED LEFT WRIST WITH NON ADHERENT AND SOME COBAN AND A WRIST SPLINT PER MD
[2020-10-29 20:05] VITALS: BP 135/74
== END 2020-10-29 20:24 | disposition home or self-care (01) ==
LOC: ER 17:22
DX: L03.114 Cellulitis of left upper limb (principal); M67.432 Ganglion, left wrist; E78.00 Pure hypercholesterolemia, unspecified; I10 Essential (primary) hypertension; J44.9 Chronic obstructive pulmonary disease, unspecified; G89.29 Other chronic pain; F41.9 Anxiety disorder, unspecified; F17.200 Nicotine dependence, unspecified, uncomplicated; F12.90 Cannabis use, unspecified, uncomplicated; F15.90 Other stimulant use, unspecified, uncomplicated; Z87.440 Personal history of urinary (tract) infections; Z90.89 Acquired absence of other organs; Z59.0 Homelessness; Z79.2 Long term (current) use of antibiotics; Z79.899 Other long term (current) drug therapy
CPT/HCPCS: 10160; 99284

== ENCOUNTER 2021-09-04 23:12 | Emergency (ER) | payer MEDICAID ==
[~2021-09-04] VITALS: Ht 177.8 cm; Wt 98.1 kg
[~2021-09-04 23:12] MED LIST changes: +CEPH-585 PO; -OMEP-50 PO; +OMEP20CA16 PO
[2021-09-04 23:52] VITALS: BP 130/96
[2021-09-05 03:47] LABS: BASOPHILS # (AUTO) 0.1 X10'3 (0-0.2); BASOPHILS % (AUTO) 0.6 % (0-1); EOSINOPHILS # (AUTO) 0.2 X10'3 (0-0.9); EOSINOPHILS % (AUTO) 2.4 % (0-6); HEMATOCRIT 39.7 % (42.0-52.0); HEMOGLOBIN 13.2 g/dl (14.0-17.9); LYMPHOCYTES # (AUTO) 1.8 X10'3 (1.1-4.8); LYMPHOCYTES % (AUTO) 18.5 % (21-51); MEAN CORPUSCULAR HEMOGLOBIN 27.1 PG (27.0-31.0); MEAN CORPUSCULAR HGB CONC 33.2 g/dL (33.0-36.5); MEAN CORPUSCULAR VOLUME 81.8 FL (78-98); MEAN PLATELET VOLUME 7.2 FL (7.4-10.4); MONOCYTES # (AUTO) 0.7 X10'3 (0-0.9); MONOCYTES % (AUTO) 7.2 % (2-12); NEUTROPHILS # (AUTO) 6.8 X10'3 (1.8-7.7); NEUTROPHILS % (AUTO) 71.3 % (42-75); PLATELET COUNT 262 X10'3 (140-440); RED BLOOD COUNT 4.86 X10'6 (4.70-6.10); RED CELL DISTRIBUTION WIDTH 14.7 % (11.5-14.5); WHITE BLOOD COUNT 9.6 X10'3 (4.5-11.0)
[2021-09-05 04:04] LABS: ALANINE AMINOTRANSFERASE 23 U/L (12-78); ALBUMIN 3.4 G/DL (3.4-5.0); ALBUMIN/GLOBULIN RATIO 0.8 (1.1-1.5); ALKALINE PHOSPHATASE 86 IU/L (46-116); ANION GAP 10 (8-16); ASPARTATE AMINO TRANSFERASE 14 U/L (10-37); BILIRUBIN,TOTAL 0.6 MG/DL (0.1-1.0); BLOOD UREA NITROGEN 20 MG/DL (7-18); BUN/CREATININE RATIO 15.9 (5.4-32.0); CALCIUM 8.6 MG/DL (8.5-10.1); CHLORIDE 102 MMOL/L (99-107); CREATININE 1.26 MG/DL (0.60-1.10); GLUCOSE 102 MG/DL (70-104); SODIUM 136 MMOL/L (135-145); TOTAL PROTEIN 7.9 G/DL (6.4-8.2); eGFR 59 ML/MIN
[2021-09-05] MEDS ORDERED: sulfamethoxazole/trimethoprim DS (800/160mg) tablet PO ONE (04:35)
[2021-09-05] MEDS ORDERED: cephalexin 250mg capsule PO ONE (04:35)
== END 2021-09-05 04:54 | disposition home or self-care (01) ==
LOC: ER 23:12
DX: K13.0 Diseases of lips (principal); E78.00 Pure hypercholesterolemia, unspecified; I10 Essential (primary) hypertension; J44.9 Chronic obstructive pulmonary disease, unspecified; G89.29 Other chronic pain; F41.9 Anxiety disorder, unspecified; F17.200 Nicotine dependence, unspecified, uncomplicated; F12.90 Cannabis use, unspecified, uncomplicated; F15.90 Other stimulant use, unspecified, uncomplicated; Z87.440 Personal history of urinary (tract) infections; Z59.00 Homelessness unspecified; Z90.89 Acquired absence of other organs; Z79.2 Long term (current) use of antibiotics; Z79.899 Other long term (current) drug therapy
CPT/HCPCS: 36415; 80053; 83605; 85025; 99283

== ENCOUNTER 2021-11-05 15:50 | Emergency (ER) | payer MEDICAID ==
[~2021-11-05] VITALS: Ht 177.8 cm; Wt 65.9 kg
[~2021-11-05 15:50] MED LIST changes: -CEPH-585 PO
[2021-11-05] MEDS ORDERED: normal saline 1000ml 1,000 ML IV ONE (17:05)
[2021-11-05 17:22] LABS: BASOPHILS # (AUTO) 0.1 X10'3 (0-0.2); BASOPHILS % (AUTO) 0.6 % (0-1); EOSINOPHILS # (AUTO) 0.2 X10'3 (0-0.9); EOSINOPHILS % (AUTO) 2.3 % (0-6); HEMATOCRIT 37.7 % (42.0-52.0); HEMOGLOBIN 12.3 g/dl (14.0-17.9); LYMPHOCYTES % (AUTO) 10.5 % (21-51); MEAN CORPUSCULAR HGB CONC 32.7 g/dL (33.0-36.5); MEAN CORPUSCULAR VOLUME 82.5 FL (78-98); MONOCYTES # (AUTO) 0.4 X10'3 (0-0.9); MONOCYTES % (AUTO) 4.7 % (2-12); NEUTROPHILS # (AUTO) 7.6 X10'3 (1.8-7.7); NEUTROPHILS % (AUTO) 81.9 % (42-75); PLATELET COUNT 242 X10'3 (140-440); RED BLOOD COUNT 4.57 X10'6 (4.70-6.10); RED CELL DISTRIBUTION WIDTH 15.1 % (11.5-14.5); WHITE BLOOD COUNT 9.2 X10'3 (4.5-11.0)
[2021-11-05 17:38] LABS: ALANINE AMINOTRANSFERASE 19 U/L (12-78); ALBUMIN 3.5 G/DL (3.4-5.0); ALBUMIN/GLOBULIN RATIO 0.9 (1.1-1.5); ALKALINE PHOSPHATASE 73 IU/L (46-116); ANION GAP 7 (8-16); ASPARTATE AMINO TRANSFERASE 11 U/L (10-37); BILIRUBIN,TOTAL 0.3 MG/DL (0.1-1.0); BLOOD UREA NITROGEN 22 MG/DL (7-18); BUN/CREATININE RATIO 17.2 (5.4-32.0); CALCIUM 8.3 MG/DL (8.5-10.1); CHLORIDE 108 MMOL/L (99-107); CREATININE 1.28 MG/DL (0.60-1.10); GLUCOSE 125 MG/DL (70-104); POTASSIUM 3.6 MMOL/L (3.5-5.1); SODIUM 142 MMOL/L (135-145); TOTAL CARBON DIOXIDE 26.7 MMOL/L (24-32); TOTAL PROTEIN 7.4 G/DL (6.4-8.2); eGFR 58 ML/MIN
[2021-11-05 18:21] VITALS: BP 136/91
== END 2021-11-05 18:22 | disposition home or self-care (01) ==
LOC: ER 15:51
DX: T50.7X1A Poisoning by analeptics and opioid receptor antagonists, accidental (unintentional), initial encounter (principal); R41.82 Altered mental status, unspecified; Y92.89 Other specified places as the place of occurrence of the external cause
CPT/HCPCS: 36415; 80053; 82948; 85025; 93005; 99284; J7030

== ENCOUNTER 2024-10-31 20:33 | Emergency (ER) | payer MEDICAID ==
[~2024-10-31] VITALS: Ht 175.3 cm; Wt 62.5 kg
[~2024-10-31 20:33] MED LIST changes: -GABA-534 PO; +GABA-535 PO
--- NOTE | 2024-10-31 20:45 | Physician Documentation ---
History of Present Illness ~ Stated Complaint: HURT FOOT Time Seen by MD: 21:01 Primary Medical Doctor: [facility] 59-year-old male presents to the ED with a complaint of left ankle and foot pain. States he had surgery via Dr. Winn four days ago. States he somehow injured his left foot now states blood is coming from the the region. Currently wearing the orthotic boot but states that he took the boot off to evaluate Day of Onset: Oct 31, 2024 Tetanus witin 5 years: Yes (2017) Medication Reconciliation Allergies: Coded Allergies: No Known Allergies (Unverified , 10/31/24) Scheduled Gabapentin (Gabapentin), 1 CAP PO TID, (Reported) Omeprazole (Omeprazole), 1 CAP PO DAILY, (Reported) Tamsulosin Hcl (Flomax), 1 CAP PO DAILY, (Reported) Scheduled PRN Ibuprofen (Ibuprofen), 1 TAB PO TID PRN for pain, (Reported) Past Medical History Past Medical History: High Cholesterol, Hypertension, COPD, UTI, Chronic Back Pain, Anxiety Past Surgical History: tonsillectomy Alcohol Use: None Drug Use: marijuana, methamphetamine Lives In: Homeless Review of Systems All Other Systems at this time: Reviewed and Negative ROS As stated above in the HPI, otherwise all systems are reviewed and negative. Physical Exam Physical Exam General: Alert, no apparent distress. Extremities: Boot in place on right side, bloody discharge swelling Neurologic: Oriented x4. Psychiatric: Normal mood and affect. Skin: Normal color, warm and dry. No edema, no ecchymosis. Progress Results/Orders Results/Orders Orders - CHANDAN VILLEGAS [employer] Ankle, Complete(3vw Min) (10/31/24 20:45) Foot, Complete (3vw Min) (10/31/24 20:45) Completed Orders - CHANDAN VILLEGAS [employer] Ankle, Complete(3vw Min) (10/31/24 20:45) Foot, Complete (3vw Min) (10/31/24 20:45) Vital Signs 10/31/24 20:40 Temp 96.3 Pulse 84 Resp 15 B/P (MAP) 149/98 Pulse Ox 99 Medical Decision Making Findings Wound and surgical site was re-dressed as appropriate for x-ray did not make any note of any dislodged surgical hardware. advise the patient to stop utilizing his foot and it to heal properly and he needs to follow up with his surgeon for further evaluation Departure Disposition: HOME / SELF CARE / HOMELESS Impression: Primary Impression: Post surgical complication Condition: Improved Additional Instructions: Evaluated for postsurgical complications today, did not numb make any note of any changes that are concerning in your hardware . You need to follow up with her surgeon for further evaluation please do not utilize your foot any further as it can lead to prolonged healing and further complication Referrals: NO PRIMARY CARE PROVIDER (PCP) Signature Scribe Signature: r Attestation: Scribed for Chandan Villegas Np by Chandan Valle NP . 10/31/24 21:56 CHANDAN VILLEGAS NP Oct 31, 2024 20:45
--- NOTE | 2024-10-31 21:47 | RADIOLOGY REPORT ---
EXAM: DI FOOT, COMPLETE (3VW MIN), DI ANKLE, COMPLETE(3VW MIN) REASON FOR EXAM: post surgery injury TECHNIQUE: AP, lateral, and oblique views of the left foot and left ankle are submitted for review. COMPARISON: None FINDINGS: The bones demonstrate grossly normal mineralization. There is a well-circumscribed lucent l esion within the calcaneus. There is a plantar calcaneal spur. There are external fixation pins in 2n d, 3rd, 4th, and 5th rays which have had osteotomy of the proximal interphalangeal joints. There is p late and screw fixation of the 1st metatarsophalangeal joint. The ankle mortise is not widened. There is moderate soft tissue swelling about the forefoot. IMPRESSION: Surgical changes in the forefoot as described above. Moderate soft tissue swelling about the forefoot.
[2024-10-31 22:15] VITALS: BP 145/90; PULSE 80; RESP 16; TEMP 98.6; O2SAT 99
== END 2024-10-31 22:16 | disposition home or self-care (01) ==
LOC: ER 20:35
DX: T81.89XA Other complications of procedures, not elsewhere classified, initial encounter (principal); E78.00 Pure hypercholesterolemia, unspecified; I10 Essential (primary) hypertension; J44.9 Chronic obstructive pulmonary disease, unspecified; F41.9 Anxiety disorder, unspecified; F12.90 Cannabis use, unspecified, uncomplicated; F15.90 Other stimulant use, unspecified, uncomplicated; Z90.89 Acquired absence of other organs; Y92.89 Other specified places as the place of occurrence of the external cause
CPT/HCPCS: 73610; 73630; 99284; A6223; A6449